=== PATIENT | male | born 1995 | race Caucasian/White ===

== ENCOUNTER 2024-07-23 18:18 | Emergency (ER) | payer OTHER, SELFPAY ==
[2024-07-23 18:22] VITALS: BP 126/98; PULSE 75; RESP 18; TEMP 37.1; O2SAT 97; BMI 19.5
--- NOTE | 2024-07-23 18:28 | PC.NURSE ---
pt brought back to room from triage
[2024-07-23 18:33] VITALS: BP 147/88; PULSE 96; O2SAT 98
--- NOTE | 2024-07-23 18:42 | ED_ITS ---
Discharge Plan Disposition Patient Disposition: Home, Self-Care Prescriptions Prescriptions: New dexamethasone 6 mg tablet 6 mg PO DAILY PRN (Reason: severe migraine) Qty: 5 0RF prochlorperazine maleate [Compazine] 10 mg tablet 10 mg PO Q6H PRN (Reason: nausea and vomiting) 1 Days Qty: 20 0RF No Action promethazine 25 mg tablet 25 mg PO Q6H PRN (Reason: nausea and vomiting) Qty: 12 0RF famotidine [Pepcid] 20 mg tablet 20 mg PO BID 42 Days Qty: 84 0RF Referrals Follow up/Referrals: Denilson Denson [Primary Care Provider] - See instructions Activity Restrictions/Add. Instructions Additional Instructions/Restrictions: Call your family doctor to establish care for this visit to the emergency department and schedule follow-up within 48 hours to ensure improvement. If you have any worsening of your condition or any other concerning signs or symptoms, return to the emergency department or your primary care doctor for further evaluation. If you have continuous headaches, talk to your family doctor about headache controller medication. For breakthrough migraines, you can take oral medication cocktail at home. Steroid and Compazine sent to the pharmacy. For migraines unresponsive to typical therapies at home, 800 mg ibuprofen, 1000 mg acetamin ophen, 10 mg Compazine, 50 mg of Benadryl, 6 mg of dexamethasone, 800 mg of magnesium oxide, and drink plenty of fluids. Lay down in dark, cool place or go to bed for the night after taking these, knowing that Benadryl can make you sleepy. Clinical Impressions Clinical Impression: Migraine Print Language Print Language: [place] Discharge ED Provider: Leonard Gold General Adult HPI General Chief complaint: Headache Stated complaint: YIP, vomiting Time Seen by Provider: 07/23/24 18:30 Mode of Arrival: Ambulatory Source of Information: Patient Limitations: No Limitations Description of Symptoms (Recalled from ER Triage Doc. by RN): Pt presents with c/o headache x 10 days. Has tried OTC medications but has not had relief. pt has had n/v History of Present Illness HPI narrative: Please note that above description of symptoms, in this electronic medical record under categorization of recalled from ER triage doctor by RN are reflective of an initial nursing assessment, however, is not reflective of my full history and physical exam that was personally taken and clarified. Consequentially, this preceding description of symptoms, which may include the patient's categorized chief complaint in the EMR, do not reflect my personal clinical impression, and the ultimate description of history of present illness and patient stated complaints should be deferred to this section of the note. Unless stated otherwise or congruent with this section of the note, additional signs, symptoms, or incongruence should be interpreted as inaccurate with my clinical impression. Related Data Previous Rx's ?Medication ?Instructions ?Recorded famotidine 20 mg tablet (Pepcid) 20 mg PO BID 6 weeks #84 tabs 11/11/23 promethazine 25 mg tablet 25 mg PO Q6H PRN nausea and 11/11/23 vomiting #12 tabs dexamethasone 6 mg tablet 6 mg PO DAILY PRN severe migraine 07/23/24 #5 tabs prochlorperazine maleate 10 mg 10 mg PO Q6H PRN nausea and 07/23/24 tablet (Compazine) vomiting 24 hours #20 tabs Allergies Allergy/AdvReac Type Severity Reaction Status Date / Time No Known Allergies Allergy Verified 11/10/23 23:51 [facility] Disclaimer: The information contained in this section may have been updated after the patient was seen, as this information can be updated by other users. Social History (Updated 11/11/23 @ 02:07 by Nena Vasquez DO) Smoking Status: Current every day smoker alcohol intake: never current occupational status: employed Travel in the last 8 weeks: None Have you lived/traveled outside [place] in past 30 days?: No Contact w/someone who lives/traveled outside US past 30 days?: No Exposure to someone with infectious disease in past 14 days?: No Do you have a fever (greater than 100.4 F or 38 C)?: Yes Have you tested positive for COVID-19: No Exposed to someone with COVID-19 in past 14 days?: No Do you have a sore throat?: No Do you have a cough?: No Do you have any weakness?: Yes Do you have any diarrhea?: No Are you experiencing any unusual bleeding?: No Do you have any muscle aches/pain?: No Do you have any abdominal pain?: No Are you experiencing loss of taste or smell?: No ROS Obtained: Yes All systems reviewed & no additional complaints except as documented Physical Exam General General appearance: alert Head Head exam: atraumatic and normocephalic Eye Eye exam: Present normal appearance, PERRL and EOMI Neck Neck exam: Present normal inspection, full ROM and trachea midline Respiratory Respiratory exam: Absent respiratory distress, wheezes, stridor, accessory muscle use or prolonged expiratory phase Cardiovascular Cardiovascular exam: Present other (Pulses equal symmetric in upper and lower extremities) Abdominal Exam Abdominal exam: Present soft; Absent distention, tenderness or pulsatile mass Extremities Exam Extremities exam: Absent edema Neurological Exam Neurological exam: Present alert, oriented X3 and CN II-XII intact; Absent motor sensory deficit Skin Skin exam: Present warm and dry; Absent diaphoresis or erythema Medical Decision Making Medical Records Medical records reviewed: Yes I reviewed the patient's medical records. Screening: Per USPSTF and CDC recommendations, given the prevalence of disease in our region, it is our hospital?s policy to screen for HIV and viral Hepatitis for all patients aged 18 and over and those with ongoing risk factors. Adalberto Inquiry Pt receiving controlled substance: No Adalberto was queried for this patient: No Vital Signs: 07/23/24 18:22 07/23/24 18:33 Temperature 98.7 F Temperature Source Oral Pulse Rate 96 H Pulse Rate [Right] 75 Respiratory Rate 18 Blood Pressure 147/88 H Blood Pressure [Right Arm] 126/98 H Blood Pressure Mean [Right Arm] 107 Blood Pressure Source [Right Arm] Automatic Cuff Blood Pressure Position [Right Arm] Sitting 02 Sat by Pulse Oximetry 97 98 Oxygen Delivery Method Room Air Room Air Orders (Tests/Meds): ED MEDICATIONS Generic Name Dose Route Start Last Admin Trade Name Freq PRN Reason Stop Dose Admin Lactated Ringer's 1,000 mls @ 999 mls/hr 07/23/24 18:39 07/23/24 18:49 Lactated Ringer's 1000 Ml Bag IV 07/23/24 19:39 999 mls/hr .Q1H1M ONE Administration Magnesium Sulfate 2 gm in 50 mls @ 50 mls/hr 07/23/24 18:39 07/23/24 18:49 Magnesium Sulfate 2gm/50ml Premix IV 07/23/24 19:38 50 mls/hr ONCE ONE Administration Discontinued Medications Generic Name Dose Route Start Last Admin Trade Name Freq PRN Reason Stop Dose Admin Acetaminophen 1,000 mg 07/23/24 18:39 07/23/24 18:49 Acetaminophen 1,000mg/100ml Vial IV 07/23/24 18:40 1,000 mg ONCE ONE Administration Dexamethasone Sodium Phosphate 10 mg 07/23/24 18:39 07/23/24 18:51 Dexamethasone 4mg/Ml 1ml Vial IV 07/23/24 18:40 10 mg ONCE ONE Administration Diphenhydramine HCl 50 mg 07/23/24 18:39 07/23/24 18:52 Diphenhydramine 50mg/Ml Vial IV 07/23/24 18:40 50 mg ONCE ONE Administration Ketorolac Tromethamine 15 mg 07/23/24 18:39 07/23/24 18:50 Ketorolac 30mg/Ml Vial IV 07/23/24 18:40 15 mg ONCE ONE Administration Prochlorperazine Edisylate 10 mg 07/23/24 18:39 07/23/24 18:52 Prochlorperazine 10mg/2ml Vial IV 07/23/24 18:40 10 mg ONCE ONE Administration Medical Decision Narrative: 28-year-old male remote history of migraines presenting with migraine. This been going on for about 10 days. Photophobic, photophobic. States that it is better at night when he lays down, worse after he wakes up and getting worse throughout the days. States that it is mostly right-sided, started with a sinus headache that was about a week and a half ago. Has not gotten any better since. Has tried numerous oral medications at home without success. No other associated symptoms. History was obtained via conversation with patient and significant other. On arrival, patient hemodynamically stable, alert, oriented x4, appropriate, GCS 15, moving all extremities spontaneously, pupils equal and reactive to light. Full physical exam performed and significant for very clin ically well patient. Neuro intact. Speaking in full sentences and appropriate. Bilateral EOMs intact and normal. No facial swelling. No neck stiffness or tenderness/meningismus.. Differential includes migraine, tension headache, cluster headache, among others. Patient placed on continuous cardiac monitoring and continuous pulse ox with initial blood pressure 126/98, heart rate 85, saturation 97% on room air. Patient was given migraine cocktail for symptomatic management and correction of underlying abnormalities. On repeat evaluation, patient states that his migraine is gone, however getting anxious from the Compazine. Requesting to leave. I feel this is appropriate given patient presentation, workup, history, this most likely represents acute migraine headache. Because patient at baseline without signs or symptoms of clinical decompensation, deemed appropriate for discharge. Results were relayed to patient who voiced understanding and were agreeable to outpatient management and follow up. I discussed my clinical impression with patient and answered all questions. At this time, the evidence for any other entities in the differential is insufficient to warrant any further testing or ED observation. This was explained as well. Advisory was given that persistent or worsening symptoms require further evaluation. I confirmed the understanding of this discussion. Oral migraine cocktail and sent to the pharmacy. [employer] disclaimer Much of this encounter note is an electronic director learning services spoken language to printed text. Electronic director learning services of the spoken language may permit errors. Although I have reviewed the note, some errors may still exist. Critical Care Critical Care Time Critical Care Time: No
--- NOTE | 2024-07-23 18:42 | PC.NURSE ---
pt reports headache ongoing for 10 days, no relief with OTC medications.
--- NOTE | 2024-07-23 18:44 | PC.NURSE ---
TRN walked into pts room and he was vomitting. pt reports that he has also been vomitting as well.
[2024-07-23] MEDS: ACETAMINOPHEN 1,000MG/100ML VIAL 1000 MG IV (18:49)
[2024-07-23] MEDS: MAGNESIUM SULFATE IN WATER 2 GM/50 ML PIGGYBACK IV (18:49)
[2024-07-23] MEDS: LACTATED RINGERS 1000ML 1,000 ML 999 ML IV (18:49)
[2024-07-23] MEDS: KETOROLAC 30MG/ML VIAL 15 MG IV (18:50)
[2024-07-23] MEDS: DEXAMETHASONE 4MG/ML 1ML VIAL 10 MG IV (18:51)
[2024-07-23] MEDS: PROCHLORPERAZINE 10MG/2ML VIAL 10 MG IV (18:52)
[2024-07-23] MEDS: diphenhydrAMINE 50MG/ML VIAL 50 MG IV (18:52)
--- NOTE | 2024-07-23 18:55 | PC.NURSE ---
ROUNDED ON THE PT. THE PT VOICES THAT HE DOES NOT NEED ANYTHING AT THIS TIME. CALL LIGHT IS WITHIN REACH OF THE PT. FAMILY MEMBER IS PRESENT AT THE BEDSIDE.
[2024-07-23 19:00] VITALS: BP 141/77; PULSE 77; O2SAT 98
[2024-07-23 19:23] VITALS: BP 141/77; PULSE 79; RESP 20; TEMP 37.1; O2SAT 98
== END 2024-07-23 19:24 | disposition home or self-care (01) ==
PROVIDERS: Emergency Provider Emergency Medicine; PCP Pediatrics
DX: G43.909 Migraine, unspecified, not intractable, without status migrainosus (principal); R11.2 Nausea with vomiting, unspecified; Z72.0 Tobacco use
CPT/HCPCS: 96361; 96365; 96374; 96375; 99284; J0131; J0780; J1100; J1200; J1885; J3475; J7120

== ENCOUNTER 2024-09-27 11:05 | Emergency (ER) | payer OTHER, SELFPAY ==
[2024-09-27 11:15] VITALS: BP 145/86; PULSE 93; RESP 20; TEMP 36.8; O2SAT 99; BMI 19.5
--- NOTE | 2024-09-27 11:25 | XR_ITS ---
PROCEDURE INFORMATION: Exam: XR Left Calcaneus Exam date and time: 09/27/2024 11:30 AM Age: 29 years old Clinical indication: Injury or trauma; Other: Stomped the ground; Other: Pain; Additional info: Stomped ground, left calcaneal pain TECHNIQUE: Imaging protocol: Radiologic exam of the left calcaneus. Views: 2 or more views. COMPARISON: CR XR FOOT LT 2V 09/27/2024 11:30 AM FINDINGS: Bones/joints: Osseous structures are intact. No fracture or malalignment. Visualized joint surfaces are preserved. Soft tissues: Unremarkable. IMPRESSION: Negative exam. No acute bony abnormalities.
--- NOTE | 2024-09-27 11:25 | XR_ITS ---
PROCEDURE INFORMATION: Exam: XR Left Foot Exam date and time: 09/27/2024 11:30 AM Age: 29 years old Clinical indication: Injury or trauma; Other: Stomped the ground; Other: Pain; Additional info: Stomped ground, left calcaneal pain TECHNIQUE: Imaging protocol: Radiologic exam of the left foot. Views: 1 or 2 views. COMPARISON: CR XR CALCANEUS LT MIN 2V 09/27/2024 11:30 AM FINDINGS: Bones/joints: Normal. No fracture, dislocation or malalignment. Joint surfaces are perserved. Soft tissues: Normal. IMPRESSION: Negative exam, No acute bony abnormalities.
--- NOTE | 2024-09-27 11:25 | HMH.EDGENADL ---
Discharge Plan Disposition Patient Disposition: Home, Self-Care Condition: Good Prescriptions Prescriptions: No Action promethazine 25 mg tablet 25 mg PO Q6H PRN (Reason: nausea and vomiting) Qty: 12 0RF famotidine [Pepcid] 20 mg tablet 20 mg PO BID 42 Days Qty: 84 0RF dexamethasone 6 mg tablet 6 mg PO DAILY PRN (Reason: severe migraine) Qty: 5 0RF prochlorperazine maleate [Compazine] 10 mg tablet 10 mg PO Q6H PRN (Reason: nausea and vomiting) 1 Days Qty: 20 0RF Referrals Follow up/Referrals: Denilson Denson [Primary Care Provider] - See instructions Activity Restrictions/Add. Instructions Additional Instructions/Restrictions: You do not have any fractures on your x-rays today. You likely have a deep bruise. Use the walking boot provided to you when walking long distances or standing for long period of time to help with pain. You can also use Tylenol and ibuprofen to help with pain. Follow-up with your primary care physician as needed. Clinical Impressions Clinical Impression: Pain of left heel Print Language Print Language: [place] Discharge ED Provider: Jhon Tomlinson General Adult HPI General Chief complaint: Extremity Injury, Lower Stated complaint: left heel pain/ no acc Time Seen by Provider: 09/27/24 11:21 Mode of Arrival: Ambulatory Source of Information: Patient Description of Symptoms (Recalled from ER Triage Doc. by RN): on sunday kristin was mad and stomped through a plastic basket and ever has had left hell pain, there is bruising in different areas of foot, pt states it has ached all week long despite otc meds History of Present Illness HPI narrative: Ryan Oliveros is a 29y male with no significant past medical history who presents to the emergency department for complaints of pain to his left heel. Patient states that 5 days ago he smashed his foot through a plastic box toy in anger and his heel hit the ground. Since then, he has had pain to the lateral aspect of his left heel worse with walking. Has been taking Tylenol and ibuprofen without significant relief. He states that the pain is still present and makes it difficult to do things like hunting. He denies any numbness or tingling. He denies any significant swelling. He has no other complaints or concerns and denies any back pain. Related Data Previous Rx's ?Medication ?Instructions ?Recorded famotidine 20 mg tablet (Pepcid) 20 mg PO BID 6 weeks #84 tabs 11/11/23 promethazine 25 mg tablet 25 mg PO Q6H PRN nausea and 11/11/23 vomiting #12 tabs dexamethasone 6 mg tablet 6 mg PO DAILY PRN severe migraine 07/23/24 #5 tabs prochlorperazine maleate 10 mg 10 mg PO Q6H PRN nausea and 07/23/24 tablet (Compazine) vomiting 24 hours #20 tabs Allergies Allergy/AdvReac Type Severity Reaction Status Date / Time No Known Allergies Allergy Verified 11/10/23 23:51 [facility] Disclaimer: The information contained in this section may have been updated after the patient was seen, as this information can be updated by other users. Social History (Updated 11/11/23 @ 02:07 by Nena Vasquez DO) Smoking Status: Current every day smoker alcohol intake: never current occupational status: employed Travel in the last 8 weeks: None Have you lived/traveled outside [place] in past 30 days?: No Contact w/someone who lives/traveled outside US past 30 days?: No Exposure to someone with infectious disease in past 14 days?: No Do you have a fever (greater than 100.4 F or 38 C)?: No Have you tested positive for COVID-19: No Exposed to someone with COVID-19 in past 14 days?: No Do you have a sore throat?: No Do you have a cough?: No Do you have any weakness?: No Do you have any diarrhea?: No Are you experiencing any unusual bleeding?: No Do you have any muscle aches/pain?: No Do you have any abdominal pain?: No Are you experiencing loss of taste or smell?: No ROS Obtained: Yes Systems reviewed as appropriate & no additional complaints except as documented Physical Exam General General appearance: alert and in no apparent distress Head Head exam: atraumatic Eye Eye exam: Present normal appearance ENT ENT exam: Present normal external ear exam Neck Neck exam: Present full ROM Chest Chest inspection: Present symmetric chest wall rise Respiratory Respiratory exam: Present normal lung sounds bilaterally; Absent respiratory distress Cardiovascular Cardiovascular exam: Present regular rate and normal rhythm Abdominal Exam Abdominal exam: Present soft; Absent tenderness or guarding exam: Present deferred Extremities Exam Extremities exam: Present normal inspection Back Exam Back exam: Present normal inspection Comment: Tenderness to palpation over the lateral aspect of the left calcaneus without deformity. No ankle tenderness or deformity. 2+ DP and PT pulses. Neurological Exam Neurological exam: Present alert and oriented X3 Psychiatric Psychiatric exam: Present normal affect Skin Skin exam: Present warm and dry Medical Decision Making Medical Records Screening: Per USPSTF and CDC recommendations, given the prevalence of disease in our region, it is our hospital?s policy to screen for HIV and viral Hepatitis for all patients aged 18 and over and those with ongoing risk factors. Adalberto Inquiry Pt receiving controlled substance: No Vital Signs: 09/27/24 11:15 Temperature 98.2 F Temperature Source Oral Pulse Rate [Left Radial] 93 H Respiratory Rate 20 Blood Pressure [Right Arm] 145/86 H Blood Pressure Mean [Right Arm] 105 02 Sat by Pulse Oximetry 99 Oxygen Delivery Method Room Air Orders (Tests/Meds): ED MEDICATIONS Discontinued Medications Generic Name Dose Route Start Last Admin Trade Name Freq PRN Reason Stop Dose Admin Acetaminophen 1,000 mg 09/27/24 11:25 09/27/24 11:33 Acetaminophen 500mg Tab PO 09/27/24 11:26 1,000 mg ONCE ONE Administration Ibuprofen 600 mg 09/27/24 11:25 09/27/24 11:33 Ibuprofen 600 Mg Tablet PO 09/27/24 11:26 600 mg ONCE ONE Administration ORDERS Category Date Time Status Calcaneus XR left minimum 2 views [XR calcaneus LT min Exams 09/27/24 11:25 Completed 2V] Stat Foot XR left 2 views [XR foot LT 2V] Stat Exams 09/27/24 11:25 Completed Medical Decision Narrative: Ryan Oliveros is a 29y male with no significant past medical history who presents to the emergency department for complaints of pain to his left heel. Patient states that 5 days ago he smashed his foot through a plastic box toy in anger and his heel hit the ground. Since then, he has had pain to the lateral aspect of his left heel worse with walking. Has been taking Tylenol and ibuprofen without significant relief. He states that the pain is still present and makes it difficult to do things like hunting. He denies any numbness or tingling. He denies any significant swelling. He has no other complaints or concerns and denies any back pain. On arrival, patient is hypertensive but hemodynamically stable. Heart rate within normal limits. Breathing comfortably on room air with oxygen saturation at 99% SpO2. Afebrile. Physical exam, stated above, revealed overall well appearing male in no distress. He has tenderness palpation over the lateral aspect of his left calcaneus without deformity or swelling. Neurovascular intact distally with 2+ DP and PT pulses. Skin without abrasion or laceration. Differential diagnosis includes, but is not limited to: Calcaneus fracture, bony injury to the forefoot, deep bruising, soft tissue injury, among others. Workup in the emergency room included: Calcaneus x-rays, left foot x-rays. Patient was treated with 6 mg of oral ibuprofen and 1000 mg of oral Tylenol for symptomatic relief. X-ray imaging interpreted by me personally. No acute fracture or malalignment of the foot or calcaneus. See radiology report for final interpretation Patient's workup today did not demonstrate any fractures. Is felt that his symptomatology is most likely related to a deep bruise. He is being provided a walking boot for comfort and instructed to take Tylenol and ibuprofen for symptomatic relief. He was instructed follow-up with his primary care physician if symptoms do not improve. All questions were answered. He demonstrated understanding and was in agreement this plan. He was then discharged on the emergency department in stable condition Critical Care Critical Care Time Critical Care Time: No
--- NOTE | 2024-09-27 11:30 | PC.NURSE ---
pt is going for xrays at this time
[2024-09-27] MEDS: ACETAMINOPHEN 500MG TAB 1000 MG PO (11:33)
[2024-09-27] MEDS: IBUPROFEN 600 MG TABLET PO (11:33)
[2024-09-27 12:05] VITALS: BP 130/86; PULSE 95; RESP 15; TEMP 36.7; O2SAT 99
== END 2024-09-27 12:06 | disposition home or self-care (01) ==
PROVIDERS: Emergency Provider Student in an Organized Health Care Education/Training Program; PCP Pediatrics
DX: M79.672 Pain in left foot (principal); W22.8XXA Striking against or struck by other objects, initial encounter
CPT/HCPCS: 73620; 73650; 99283